=== PATIENT | female | born 1995 | race American Indian/Alaskan Native ===

== ENCOUNTER 2017-10-06 19:09 | Emergency (ER) | payer MEDICAID ==
[2017-10-06 19:29] VITALS: BP 139/73
--- NOTE | 2017-10-06 22:33 | Emergency Department Report ---
- General Chief complaint: Headache Stated complaint: TINGLING,NUMBNESS IN HEAD,CHILLS Time Seen by Provider: 10/06/17 22:26 Source: patient Mode of arrival: Ambulatory Limitations: No Limitations - History of Present Illness Initial comments: 22-year-old -[place] female comes in complaining of intermittent Numbness and itchiness 1 week. Patient reports that his last approximate 5 minutes at a time. Initially happened about 4 times a day. Patient denies any other complaints. Patient does report that she washes her hair every couple days and uses cleaning the nature shampoo with [place]ic oil. Patient admits to having itchy scalp and when she scratches it she makes the numbness worse. Patient does not have a primary care provider. Has no known drug allergies and currently takes no medications on a daily basis. MD complaint: insect bite/sting -: week(s) (1) Severity scale (0 -10): 2 Quality: other (itchiness to scalp) Consistency: intermittent Improves with: none Worsens with: other (Alee) Treatments Prior to Arrival: none - Related Data Previous Rx's Medication Instructions Recorded Last Taken Type Permethrin [Nix Complete] 1 applicatio ONCE #1 combo..pkg 10/06/17 Unknown Rx Allergies Allergy/AdvReac Type Severity Reaction Status Date / Time No Known Allergies Allergy Verified 10/06/17 19:22 Abscess Boil HPI - HPI Chief Complaint: Headache Stated Complaint: TINGLING,NUMBNESS IN HEAD,CHILLS Time Seen by Provider: 10/06/17 22:26 Home Medications: Previous Rx's Medication Instructions Recorded Last Taken Type Permethrin [Nix Complete] 1 applicatio ONCE #1 combo..pkg 10/06/17 Unknown Rx Allergies/Adverse Reactions: Allergies Allergy/AdvReac Type Severity Reaction Status Date / Time No Known Allergies Allergy Verified 10/06/17 19:22 ED Review of Systems ROS: Stated complaint: TINGLING,NUMBNESS IN HEAD,CHILLS Other details as noted in HPI Comment: All other systems reviewed and negative Skin: change in hair/nails ED Past Medical Hx - Past Medical History Previous Medical History?: Yes Hx Arthritis: Yes Additional medical history: Ulcer - Surgical History Past Surgical History?: No - Social History Smoking Status: Current Every Day Smoker Substance Use Type: Alcohol - Medications Home Medications: Home Medications Medication Instructions Recorded Confirmed Last Taken Type Permethrin [Nix Complete] 1 applicatio ONCE #1 combo..pkg 10/06/17 Unknown Rx ED Physical Exam - General Limitations: No Limitations General appearance: alert, in no apparent distress - Head Head exam: Present: atraumatic, normocephalic - Neurological Exam Neurological exam: Present: alert, oriented X3 - Psychiatric Psychiatric exam: Present: normal affect, normal mood - Expanded Skin Exam Expanded Type of lesion: Present: foreign body (lice) Distribution of rash: head ED Course Vital Signs 10/06/17 19:22 Temperature 98.7 F Pulse Rate 57 L Respiratory 16 Rate Blood Pressure 139/73 [Right] O2 Sat by Pulse 100 Oximetry Critical care attestation.: If time is entered above; I have spent that time in minutes in the direct care of this critically ill patient, excluding procedure time. ED Disposition Clinical Impression: Head lice Disposition: DC-01 TO HOME OR SELFCARE Is pt being admited?: No Does the pt Need Aspirin: No Condition: Stable Instructions: Head lice in Children (ED), Permethrin (On the skin) Additional Instructions: Please use medication as prescribed. I highly recommend for you to get the over -the-counter sprain to spray around her room. Wash all clothes and bedding mattress pads in high high heat. If you noticed the white lice in the hair again please repeat using the medication that I have prescribed. Prescriptions: Permethrin [Nix Complete] 1 applicatio ONCE #1 combo..pkg Referrals: PRIMARY CARE, [Primary Care Provider] - 3-5 Days Forms: Work/School Release Form(ED), Accompanied Note
== END 2017-10-06 22:49 | disposition home or self-care (01) ==
LOC: ED 19:09
DX: B85.0 Pediculosis due to Pediculus humanus capitis (principal); M19.90 Unspecified osteoarthritis, unspecified site; F17.200 Nicotine dependence, unspecified, uncomplicated
CPT/HCPCS: 93005; 93010; 99282

== ENCOUNTER 2021-09-21 04:50 | Inpatient (IN) | payer MEDICAID ==
--- NOTE | 2021-09-21 08:05 | XRay Report ---
Portable chest INDICATION: Shortness of breath FINDINGS: Heart size appears normal. No focal consolidation, pleural effusion or pneumothorax. No dis placed rib fracture. IMPRESSION: No acute findings. Abdomen 1 view INDICATION: No bowel movement IMPRESSION: Constipation most significant within the right colon and proximal left colon. No free air is definitely seen. No large calcifications are identified. No acute bone findings. Signer Name: Aubrey Ramires MD Signed: 09/21/2021 8:00 AM Workstation Name: [id number]
[2021-09-21] MEDS ORDERED: ONDANSETRON 4 MG/2 ML INJ IV ONE (08:29)
[2021-09-21] MEDS ORDERED: LIDOCAINE VISCOUS 2% 15 ML ORAL LIQD PO ONE (08:29)
[2021-09-21] MEDS ORDERED: ALUM-MAG HYDROXIDE-SIMETHICONE 200-200-20MG/5ML ORAL LIQD 30 ML PO ONE (08:29)
[2021-09-21] MEDS ORDERED: SODIUM CHLORIDE 0.9% 1000 ML 1,000 ML IV ONE ×2 (08:29→10:23)
--- NOTE | 2021-09-21 08:37 | Emergency Department Report ---
ED General Adult HPI - General Chief complaint: Abdominal Pain Stated complaint: UPPER ABD PAIN Time Seen by Provider: 09/21/21 07:40 Source: patient, EMS Mode of arrival: Ambulatory Limitations: No Limitations - History of Present Illness Initial comments: This is a 26-year-old female with medical history of hyperlipidemia and also vitamin D deficiency; patient also states she has a history of gastritis came in today with concerns of mid epigastric discomfort and also vomiting as well as nausea since midnight. Patient said that she has run out of her Prilosec. Patient denies any other symptoms. Patient current denies any fever chill night sweat dizziness blurred vision lightheadedness headache tinnitus ear pain runny nose sore throat loss of taste loss of smell chest pain palpitation short of breath cough diarrhea constipation dysuria myalgia arthralgia new rash heat or cold intolerance. - Related Data Previous Rx's Medication Instructions Recorded Last Taken Type Permethrin [Nix Complete] 1 applicatio MC ONCE #1 combo..pkg 10/06/17 Unknown Rx Allergies Allergy/AdvReac Type Severity Reaction Status Date / Time No Known Allergies Allergy Verified 10/06/17 19:22 ED Review of Systems ROS: Stated complaint: UPPER ABD PAIN Other details as noted in HPI Comment: All other systems reviewed and negative Constitutional: no symptoms reported Eyes: as per HPI ENT: as per HPI Respiratory: no symptoms reported, see HPI Cardiovascular: as per HPI Endocrine: no symptoms reported Gastrointestinal: abdominal pain Musculoskeletal: as per HPI Skin: as per HPI Neurological: as per HPI Psychiatric: as per HPI Hematological/Lymphatic: as per HPI ED Past Medical Hx - Past Medical History Previous Medical History?: Yes Hx Arthritis: Yes Additional medical history: Ulcer. Gastritis - Surgical History Past Surgical History?: No - Social History Smoking Status: Current Every Day Smoker Substance Use Type: None - Medications Home Medications: Home Medications Medication Instructions Recorded Confirmed Last Taken Type Permethrin [Nix Complete] 1 applicatio MC ONCE #1 combo..pkg 10/06/17 Unknown Rx ED Physical Exam - General Limitations: No Limitations General appearance: alert, in no apparent distress, appears intoxicated - Head Head exam: Present: atraumatic, normocephalic, normal inspection - Eye Eye exam: Present: normal appearance, PERRL, EOMI Pupils: Present: normal accommodation - ENT ENT exam: Present: normal exam, mucous membranes moist - Neck Neck exam: Present: normal inspection, full ROM - Respiratory Respiratory exam: Present: normal lung sounds bilaterally - Cardiovascular Cardiovascular Exam: Present: regular rate - GI/Abdominal GI/Abdominal exam: Present: tenderness, normal bowel sounds. Absent: distended, guarding, rebound, rigid - Extremities Exam Extremities exam: Present: normal inspection, full ROM, normal capillary refill - Back Exam Back exam: Present: normal inspection - Neurological Exam Neurological exam: Present: oriented X3, CN II-XII intact - Psychiatric Psychiatric exam: Present: normal affect, normal mood - Skin Skin exam: Present: warm, normal color ED Course Vital Signs 09/21/21 09/21/21 09/21/21 04:51 09:30 11:01 Temperature 97.9 F Pulse Rate 90 62 Respiratory 18 18 14 Rate Blood Pressure 130/70 142/73 143/69 O2 Sat by Pulse 98 100 100 Oximetry 09/21/21 09/21/21 09/21/21 12:01 12:31 13:01 Temperature Pulse Rate 46 L 52 L 46 L Respiratory 18 15 19 Rate Blood Pressure 127/59 138/66 132/71 O2 Sat by Pulse 100 100 100 Oximetry 09/21/21 15:01 Temperature Pulse Rate 49 L Respiratory 19 Rate Blood Pressure 118/64 O2 Sat by Pulse 100 Oximetry - Reevaluation(s) Reevaluation #1: 09/21/21 15:[address] SCAN RESULT; WILL SIGN OUT PATIENT CARE TO MY COLLEAG[employer] DR. MORE. 09/21/21 15:28 PENDING SURGEON TO CALL BACK 09/21/21 15:[address] MITCHELL AND STANLEY WHO ACCETPED [facility] PATIENT ED Medical Decision Making - Lab Data Result diagrams: 09/21/21 08:58 09/21/21 08:58 Critical care attestation.: If time is entered above; I have spent that time in minutes in the direct care of this critically ill patient, excluding procedure time. ED Disposition Clinical Impression: Acute cholecystitis Disposition: ADMITTED INPATIENT Is pt being admited?: Yes Does the pt Need Aspirin: No Condition: Stable Instructions: Abdominal Pain (ED) Referrals: PRIMARY CARE, [Primary Care Provider] - 3-5 Days Time of Disposition: 15:28
[2021-09-21 09:35] LABS: Hematocrit 41.1 % (30.3-42.9); Hemoglobin 13.6 gm/dl (10.1-14.3); Mean Corpuscular HGB Conc 33 % (30-34); Mean Corpuscular Volume 92 fl (79-97); Platelet Count 364 K/mm3 (140-440); Red Blood Count 4.48 M/mm3 (3.65-5.03); Red Cell Distribution Width 13.3 % (13.2-15.2)
[2021-09-21 09:57] LABS: Alanine Aminotransferase 15 units/L (7-56); Albumin 4.4 g/dL (3.9-5); BUN/Creatinine Ratio 13; Blood Urea Nitrogen 10 mg/dL (7-17); Calcium 9.5 mg/dL (8.4-10.2); Hemolysis Index 6
[2021-09-21] MEDS ORDERED: MORPHINE 4 MG/1 ML INJ IV ONE (11:34)
[2021-09-21 13:15] LABS: Mucus,Urine FEW /HPF
[2021-09-21 14:03] LABS: HCG Qualitative,Urine Negative (Negative)
[2021-09-21 14:04] LABS: RBC,Urine > 182.0 /HPF (0.0-6.0)
[2021-09-21 14:06] LABS: Bilirubin,Urine Negative (Negative); Blood,Urine Small (Negative); Color,Urine Straw (Yellow); Protein,Urine <30 mg dL mg/dL (Negative); Urobilinogen,Urine < 2.0 mg/dL (<2.0)
--- NOTE | 2021-09-21 15:24 | Cat Scan Report ---
CT abdomen pelvis w con INDICATION: EPIGASTRIC PAIN. COMPARISON: None TECHNIQUE: Abdominal and pelvic CT exam performed. All CT scans at this location are performed using CT dose reduction for ALARA by means of automated exposure control. FINDINGS: CT ABDOMEN and PELVIS: Lung Bases: No significant abnormality. Liver: No significant abnormality. Biliary: Gallbladder is dilated. Layering dependently are small foci of high attenuation which is mos t likely related to noncalcified gallstones. There are a few small punctate foci of complications see n as well. The gallbladder wall is thickened and edematous. Common bile duct is normal. Spleen: No significant abnormality. Pancreas: No significant abnormality. Adrenals: No significant abnormality. Kidneys: No significant abnormality. Lymphatics: No lymphadenopathy. Vasculature: No significant abnormality. Bowel: No significant abnormality. Pelvis: No significant abnormality. Osseous Structures: No aggressive osseous lesion. Additional Findings: None IMPRESSION: 1. Findings suggest acute cholecystitis from suspected predominantly noncalcified gallstones. Can obt ain a dedicated ultrasound of the gallbladder to confirm the presence of stones if necessary. Signer Name: Socrates Mojica MD Signed: 09/21/2021 3:20 PM Workstation Name: [employer]
[2021-09-21] MEDS ORDERED: PIPERACILLIN/TAZOBACTAM 3.375 3.375 GM/50 ML BAG IV ONE (15:26)
[2021-09-21] MEDS ORDERED: ONDANSETRON 4 MG/2 ML INJ IV PRN ×2 (16:05→23:04)
[2021-09-21] MEDS ORDERED: MORPHINE 4 MG/1 ML INJ IV PRN (16:05)
[2021-09-21] MEDS ORDERED: MORPHINE 2 MG/1 ML INJ IV PRN (16:05)
--- NOTE | 2021-09-21 16:37 | Consultation ---
History of Present Illness Consult date: 09/21/21 Reason for consult: abdominal pain Chief complaint: abd pain - History of present illness History of present illness: 26-year-old female with no past medical history who presents to the emergency room with 1 day of epigastric abdominal pain. The pain started at midnight last night and became severe. The pain is constant. It is localized to the epigastric area and radiates to the right upper quadrant, back, chest area. He states she felt like she was having heart attack and this prompted her to come to the emergency room. No alleviating or exacerbating factors. She did eat roast beef last night. States she has had similar symptoms but they were much less severe. She admits to nausea and nonbilious/nonbloody emesis. No fevers or chills. No shortness of breath. Past History Past Medical History: No medical history Past Surgical History: Other ([place] teeth extraction) Social history: smoking (1 pack/day), alcohol abuse (1 bottle of wine a day) Family history: no significant family history Medications and Allergies Allergies Allergy/AdvReac Type Severity Reaction Status Date / Time No Known Allergies Allergy Verified 09/21/21 16:30 Home Medications Medication Instructions Recorded Confirmed Last Taken Type Permethrin [Nix Complete] 1 applicatio MC ONCE #1 combo..pkg 10/06/17 Unknown Rx Active Meds: Active Medications Piperacillin Sod/Tazobactam Sod (Zosyn/Ns 4.5gm/100ml) 4.5 gm in 100 mls @ 200 mls/hr IV Q8H JUAN F; Protocol Morphine Sulfate (Morphine 2 Mg/1 Ml Inj) 2 mg IV Q3H PRN PRN Reason: Pain, Moderate (4-6) Morphine Sulfate (Morphine 4 Mg/1 Ml Inj) 4 mg IV Q3H PRN PRN Reason: Pain , Severe (7-10) Last Admin: 09/21/21 16:31 Dose: 4 mg Ondansetron HCl (Ondansetron 4 Mg/2 Ml Inj) 4 mg IV Q6H PRN PRN Reason: Nausea Review of Systems All systems: negative (10 point ROS performed and negative except for that listed in HPI) Exam Vital Signs Temp Pulse Resp BP Pulse Ox 97.9 F 90 18 130/70 98 09/21/21 04:51 09/21/21 04:51 09/21/21 04:51 09/21/21 04:51 09/21/21 04:51 Narrative exam: Gen.: Awake, alert, oriented x3. Mild distress due to pain ENT: Trachea midline. No lymphadenopathy. No scleral icterus or conjunctival pallor CV: S1, S2 present Respiratory: No audible wheezes Abdomen: Soft, nondistended, right upper quadrant tenderness to palpation. There is voluntary guarding. No rebound, rigidity Extremities: No clubbing, cyanosis, edema Results - Labs 09/21/21 08:58 09/21/21 08:58 Abnormal lab results 09/21/21 09/21/21 09/21/21 Range/Units 08:58 08:58 08:58 WBC 15.6 H (4.5-11.0) K/mm3 Glucose 137 H (65-100) mg/dL Lactic Acid 3.20 H* (0.7-2.0) mmol/L Urine Blood (Negative) Urine WBC (Auto) (0.0-6.0) /HPF 09/21/21 Range/Units 11:01 WBC (4.5-11.0) K/mm3 Glucose (65-100) mg/dL Lactic Acid (0.7-2.0) mmol/L Urine Blood Small A (Negative) Urine WBC (Auto) 63.0 H (0.0-6.0) /HPF Diabetes panel 09/21/21 Range/Units 08:58 Sodium 142 (137-145) mmol/L Potassium 4.2 (3.6-5.0) mmol/L Chloride 104.8 (98-107) mmol/L Carbon Dioxide 23 (22-30) mmol/L BUN 10 (7-17) mg/dL Creatinine 0.8 (0.6-1.2) mg/dL Glucose 137 H (65-100) mg/dL Calcium 9.5 (8.4-10.2) mg/dL AST 16 (5-40) units/L ALT 15 (7-56) units/L Alkaline Phosphatase 92 (35-129) units/L Total Protein 7.2 (6.3-8.2) g/dL Albumin 4.4 (3.9-5) g/dL Calcium panel 09/21/21 Range/Units 08:58 Calcium 9.5 (8.4-10.2) mg/dL Albumin 4.4 (3.9-5) g/dL Pituitary panel 09/21/21 Range/Units 08:58 Sodium 142 (137-145) mmol/L Potassium 4.2 (3.6-5.0) mmol/L Chloride 104.8 (98-107) mmol/L Carbon Dioxide 23 (22-30) mmol/L BUN 10 (7-17) mg/dL Creatinine 0.8 (0.6-1.2) mg/dL Glucose 137 H (65-100) mg/dL Calcium 9.5 (8.4-10.2) mg/dL Adrenal panel 09/21/21 Range/Units 08:58 Sodium 142 (137-145) mmol/L Potassium 4.2 (3.6-5.0) mmol/L Chloride 104.8 (98-107) mmol/L Carbon Dioxide 23 (22-30) mmol/L BUN 10 (7-17) mg/dL Creatinine 0.8 (0.6-1.2) mg/dL Glucose 137 H (65-100) mg/dL Calcium 9.5 (8.4-10.2) mg/dL Total Bilirubin 0.30 (0.1-1.2) mg/dL AST 16 (5-40) units/L ALT 15 (7-56) units/L Alkaline Phosphatase 92 (35-129) units/L Total Protein 7.2 (6.3-8.2) g/dL Albumin 4.4 (3.9-5) g/dL - Imaging CT scan - abdomen: report reviewed, image reviewed CT scan - pelvis: report reviewed, image reviewed Assessment and Plan 26-year-old female with right upper quadrant pain, CT scan findings of acute cholecystitis Plan: 1. CLD, NPO p MN 2. Obtain RUQ u/s 3. IVF 4. prn pain and nausea control 5. DVT ppx 6. IV abx - zosyn 7. Discussed cholecystectomy with the patient. I explained all risks, benefits, alternatives to surgery. All questions were answered. Patient agreeable to proceed with cholecystectomy. Consent obtained. Patient added to the OR schedule for tomorrow. Thank you for this consultation. Please call with any questions or concerns. Evaluation and treatment of this patient was during the time of the national and state emergency arising from COVID19 coronavirus pandemic. Treatment and procedures performed meet the current and available best practice and guidelines for patient during the COVID pandemic.
[2021-09-21] MEDS ORDERED: D5W/0.45% NACL 1,000 ML IV SCH (17:00)
--- NOTE | 2021-09-21 17:17 | Ultrasound Report ---
LIMITED RUQ ABDOMINAL ULTRASOUND INDICATION: ruq pain, gallstones. COMPARISON: CT on 09/21/2021. FINDINGS: Pancreas: Visualized portions show no significant abnormality. Abdominal Aorta: No significant abnormality. IVC: No significant abnormality. Liver: The liver measures 15.4 cm in length. No significant abnormality. Normal hepatopedal blood piero w in the main portal vein. Gallbladder: Gallstones in the gallbladder with mild wall thickening. Positive Rees's sign.. Bile ducts: No significant abnormality. Common bile duct measures 7 mm. Right kidney: No significant abnormality visualized.. Free fluid: None. Additional Findings: None. IMPRESSION: 1. Cholelithiasis with positive Rees's sign; correlation for acute cholecystitis recommended.. Signer Name: Jaspreet Kan MD Signed: 09/21/2021 5:12 PM Workstation Name: [id number]
[2021-09-21] MEDS ORDERED: ACETAMINOPHEN 325 MG TAB PO PRN (23:04)
[2021-09-21] MEDS ORDERED: METOCLOPRAMIDE 10 MG/2 ML INJ IV PRN (23:04)
[2021-09-21] MEDS ORDERED: D5W/0.9% NACL 1,000 ML IV SCH (23:45)
[2021-09-21] MEDS ORDERED: PIPERACIL/TAZOBACTA 4.5/NS 100 4.5 GM/100 ML VIAL IV SCH (23:45)
[2021-09-22] MEDS: HYDROmorphone 0.5 MG/0.5 ML INJ IV PRN ×3 (00:01→07:58)
[2021-09-22] MEDS: HEPARIN 5,000 UNIT/1 ML VIAL SUB-Q SCH ×3 (03:34→23:54)
[2021-09-22] MEDS: FAMOTIDINE 20 MG/2 ML INJ IV SCH ×3 (03:34→23:50)
[2021-09-22] MEDS: PIPERACIL/TAZOBACTA 4.5/NS 100 4.5 GM/100 ML VIAL IV SCH ×3 (03:39→17:41)
[2021-09-22 05:38] LABS: Basophils % (Auto) 0.2 % (0.0-1.8); Eosinophils % (Auto) 0.2 % (0.0-4.3); Hemoglobin 12.7 gm/dl (10.1-14.3); Lymphocytes # (Auto) 2.2 K/mm3 (1.2-5.4); Mean Corpuscular HGB Conc 33 % (30-34); Mean Corpuscular Volume 92 fl (79-97); Monocytes # (Auto) 1.3 K/mm3 (0.0-0.8); Monocytes % (Auto) 8.9 % (0.0-7.3); Platelet Count 312 K/mm3 (140-440); Red Blood Count 4.26 M/mm3 (3.65-5.03); Red Cell Distribution Width 13.4 % (13.2-15.2)
[2021-09-22 05:59] LABS: Alanine Aminotransferase 13 units/L (7-56); Albumin 3.5 g/dL (3.9-5); Blood Urea Nitrogen 8 mg/dL (7-17); Calcium 8.5 mg/dL (8.4-10.2); Hemolysis Index 4
[2021-09-22 06:04] LABS: BUN/Creatinine Ratio 11
--- NOTE | 2021-09-22 08:10 | History and Physical Report ---
History of Present Illness Date of examination: 09/21/21 Date of admission: 09/21/21 23:04 Chief complaint: Right upper quadrant pain since last night History of present illness: 26-year-old female with past medical history of hyperlipidemia and vitamin D deficiency comes in for right upper quadrant and epigastric pain since last night. Also associated with the nausea and vomiting. Vomited about 2-3 times. Eating exacerbates vomiting. And nausea. Relieving factor is nothing by mouth. - Past Medical History --Previous Medical History?: Yes --Arthritis: Yes --Additional medical history: Ulcer. Gastritis - Surgical History --Past Surgical History?: No - Social History --Smoking Status: Current Every Day Smoker --Substance Use Type: None - Medications Home Medications: Home Medications Medication Instructions Recorded Confirmed Last Taken Type Permethrin [Nix Complete] 1 applicatio ONCE #1 combo..pkg 10/06/17 Unknown Rx Review of Systems ROS: Stated complaint: UPPER ABD PAIN Other details as noted in HPI Comment: All other systems reviewed and negative Constitutional: no symptoms reported Eyes: as per HPI ENT: as per HPI Respiratory: no symptoms reported, see HPI Cardiovascular: as per HPI Endocrine: no symptoms reported Gastrointestinal: abdominal pain Musculoskeletal: as per HPI Skin: as per HPI Neurological: as per HPI Psychiatric: as per HPI Hematological/Lymphatic: as per HPI Past History Past Medical History: No medical history Past Surgical History: Other ([place] teeth extraction) Social history: smoking (1 pack/day), alcohol abuse (1 bottle of wine a day) Family history: no significant family history Medications and Allergies Allergies Allergy/AdvReac Type Severity Reaction Status Date / Time No Known Allergies Allergy Verified 09/21/21 16:30 Home Medications Medication Instructions Recorded Confirmed Last Taken Type Permethrin [Nix Complete] 1 applicatio ONCE #1 combo..pkg 10/06/17 Unknown Rx Active Meds: Active Medications Acetaminophen (Acetaminophen 325 Mg Tab) 650 mg PO Q4H PRN PRN Reason: Pain MILD(1-3)/Fever >100.5/BROOKS Famotidine (Famotidine 20 Mg/2 Ml Inj) 20 mg IV BID [facility] Last Admin: 09/22/21 03:34 Dose: Not Given Heparin Sodium (Porcine) (Heparin 5,000 Unit/1 Ml Vial) 5,000 unit SUB-Q Q12HR [facility] Last Admin: 09/22/21 03:34 Dose: Not Given Hydromorphone HCl (Hydromorphone 0.5 Mg/0.5 Ml Inj) 1 mg IV Q3H PRN PRN Reason: Pain , Severe (7-10) Last Admin: 09/22/21 07:58 Dose: 1 mg Piperacillin Sod/Tazobactam Sod (Zosyn/Ns 4.5gm/100ml) 4.5 gm in 100 mls @ 200 mls/hr IV Q8H [facility]; Protocol Last Admin: 09/22/21 03:39 Dose: 200 mls/hr Dextrose/Sodium Chloride (D5ns) 1,000 mls @ 75 mls/hr IV DIRECT JUAN F Last Admin: 09/22/21 03:38 Dose: 75 mls/hr Metoclopramide HCl (Metoclopramide 10 Mg/2 Ml Inj) 10 mg IV Q6H PRN PRN Reason: Nausea And Vomiting Morphine Sulfate (Morphine 2 Mg/1 Ml Inj) 2 mg IV Q4H PRN PRN Reason: Pain, Moderate (4-6) Ondansetron HCl (Ondansetron 4 Mg/2 Ml Inj) 4 mg IV Q3H PRN PRN Reason: Nausea And Vomiting Sodium Chloride (Sodium Chloride 0.9% 10 Ml Flush Syringe) 10 ml IV BID [facility] Last Admin: 09/22/21 03:35 Dose: Not Given Sodium Chloride (Sodium Chloride 0.9% 10 Ml Flush Syringe) 10 ml IV PRN PRN PRN Reason: LINE FLUSH Exam - Constitutional Vitals: Temp Pulse Resp BP Pulse Ox 99 F 91 H 16 112/54 99 09/22/21 03:49 09/22/21 03:49 09/22/21 04:10 09/22/21 03:49 09/22/21 04:10 General appearance: Present: no acute distress, well-nourished - EENT Eyes: Present: PERRL ENT: hearing intact, clear oral mucosa - Neck Neck: Present: supple, normal ROM - Respiratory Respiratory effort: normal Respiratory: bilateral: CTA - Cardiovascular Heart rate: 78 Rhythm: regular Heart Sounds: Present: S1 & S2. Absent: rub, click - Extremities Extremities: pulses symmetrical, No edema Peripheral Pulses: within normal limits - Abdominal General gastrointestinal: Present: soft, tender, non-distended, normal bowel sounds Localized gastrointestinal: tender: RUQ, guarding: RUQ, rebound: RUQ Female genitourinary: Present: normal - Integumentary Integumentary: Present: clear, warm, dry - Musculoskeletal Musculoskeletal: gait normal, strength equal bilaterally - Psychiatric Psychiatric: appropriate mood/affect, intact judgment & insight - Neurologic Neurologic: CNII-XII intact, moves all extremities Results - Labs CBC & Chem 7: 09/22/21 04:29 09/22/21 04:29 Labs: Laboratory Last Values WBC 14.7 K/mm3 (4.5-11.0) H 09/22/21 04:29 RBC 4.26 M/mm3 (3.65-5.03) 09/22/21 04:29 Hgb 12.7 gm/dl (10.1-14.3) 09/22/21 04:29 Hct 39.0 % (30.3-42.9) 09/22/21 04:29 MCV 92 fl (79-97) 09/22/21 04:29 MCH 30 pg (28-32) 09/22/21 04:29 MCHC 33 % (30-34) 09/22/21 04:29 RDW 13.4 % (13.2-15.2) 09/22/21 04:29 Plt Count 312 K/mm3 (140-440) 09/22/21 04:29 Lymph % (Auto) 15.0 % (13.4-35.0) 09/22/21 04:29 [place] % (Auto) 8.9 % (0.0-7.3) H 09/22/21 04:29 Eos % (Auto) 0.2 % (0.0-4.3) 09/22/21 04:29 Baso % (Auto) 0.2 % (0.0-1.8) 09/22/21 04:29 Lymph # (Auto) 2.2 K/mm3 (1.2-5.4) 09/22/21 04:29 Child[place] # (Auto) 1.3 K/mm3 (0.0-0.8) H 09/22/21 04:29 Eos # (Auto) 0.0 K/mm3 (0.0-0.4) 09/22/21 04:29 Baso # (Auto) 0.0 K/mm3 (0.0-0.1) 09/22/21 04:29 Seg Neutrophils % 75.7 % (40.0-70.0) H 09/22/21 04:29 Seg Neutrophils # 11.1 K/mm3 (1.8-7.7) H 09/22/21 04:29 Sodium 138 mmol/L (137-145) 09/22/21 04:29 Potassium 3.5 mmol/L (3.6-5.0) L 09/22/21 04:29 Chloride 102.1 mmol/L (98-107) 09/22/21 04:29 Carbon Dioxide 26 mmol/L (22-30) 09/22/21 04:29 Anion Gap 13 mmol/L 09/22/21 04:29 BUN 8 mg/dL (7-17) 09/22/21 04:29 Creatinine 0.7 mg/dL (0.6-1.2) 09/22/21 04:29 Estimated GFR > 60 ml/min 09/22/21 04:29 BUN/Creatinine Ratio 11 % 09/22/21 04:29 Glucose 111 mg/dL (65-100) H 09/22/21 04:29 Lactic Acid 1.50 mmol/L (0.7-2.0) 09/21/21 10:03 Calcium 8.5 mg/dL (8.4-10.2) 09/22/21 04:29 Magnesium 1.70 mg/dL (1.7-2.3) 09/21/21 08:58 Total Bilirubin 0.80 mg/dL (0.1-1.2) 09/22/21 04:29 AST 15 units/L (5-40) 09/22/21 04:29 ALT 13 units/L (7-56) 09/22/21 04:29 Alkaline Phosphatase 74 units/L (35-129) 09/22/21 04:29 Total Protein 6.1 g/dL (6.3-8.2) L 09/22/21 04:29 Albumin 3.5 g/dL (3.9-5) L 09/22/21 04:29 Albumin/Globulin Ratio 1.3 % 09/22/21 04:29 Amylase 77 units/L (27-131) 09/21/21 08:58 Lipase 35 units/L (13-60) 09/21/21 08:58 Urine Color Straw (Yellow) 09/21/21 11:01 Urine Turbidity Cloudy (Clear) 09/21/21 11:01 Urine pH 7.0 (5.0-7.0) 09/21/21 11:01 Ur Specific [place] 1.015 (1.003-1.030) 09/21/21 11:01 Urine Protein <30 mg dl mg/dL (Negative) 09/21/21 11:01 Urine Glucose (UA) Negative mg/dL (Negative) 09/21/21 11:01 Urine Ketones Negative mg/dL (Negative) 09/21/21 11:01 Urine Blood Small (Negative) A 09/21/21 11:01 Urine Nitrite Negative (Negative) 09/21/21 11:01 Ur Reducing Substances Not Reportable 09/21/21 11:01 Urine Bilirubin Negative (Negative) 09/21/21 11:01 Urine Ictotest Not Reportable 09/21/21 11:01 Urine Urobilinogen < 2.0 mg/dL (<2.0) 09/21/21 11:01 Ur Leukocyte Esterase Trace (Negative) 09/21/21 11:01 Urine WBC (Auto) 63.0 /HPF (0.0-6.0) H 09/21/21 11:01 Urine RBC (Auto) > 182.0 /HPF (0.0-6.0) 09/21/21 11:01 U Epithel Cells (Auto) 7.0 /HPF (0-13.0) 09/21/21 11:01 Urine WBC Clumps 3+ /HPF 09/21/21 11:01 Urine Mucus Few /HPF 09/21/21 11:01 Urine HCG, Qual Negative (Negative) 09/21/21 Unknown Short CBC 09/21/21 09/22/21 Range/Units 08:58 04:29 WBC 15.6 H 14.7 H (4.5-11.0) K/mm3 Hgb 13.6 12.7 (10.1-14.3) gm/dl Hct 41.1 39.0 (30.3-42.9) % Plt Count 364 312 (140-440) K/mm3 BMP 09/21/21 09/22/21 08:58 04:29 Sodium 142 138 Potassium 4.2 3.5 L Chloride 104.8 102.1 Carbon Dioxide 23 26 BUN 10 8 Creatinine 0.8 0.7 Glucose 137 H 111 H Calcium 9.5 8.5 Liver Function 09/21/21 09/22/21 Range/Units 08:58 04:29 Total Bilirubin 0.30 0.80 (0.1-1.2) mg/dL AST 16 15 (5-40) units/L ALT 15 13 (7-56) units/L Alkaline Phosphatase 92 74 (35-129) units/L Albumin 4.4 3.5 L (3.9-5) g/dL Urine 09/21/21 Range/Units 11:01 Urine Color Straw (Yellow) Urine pH 7.0 (5.0-7.0) Ur Specific [place] 1.015 (1.003-1.030) Urine Protein <30 mg dl (Negative) mg/dL Urine Glucose (UA) Negative (Negative) mg/dL - Imaging and Cardiology Imaging and Cardiology: CT of the abdomen Findings suggest acute cholecystitis, suspected predominantly noncalcified gallstones obtain Abdomen ultrasound a dedicated ultrasound of the gallbladder to cnfirm the presence or stones if necessary Abdomen x-ray Constipation most significant to the right colon and proximal left colon No free air is definitely seen No large calcifications are identified Chest x-ray Constipation within the right colon and proximal left colon Marquez/IV: Voiding Method Toilet Assessment and Plan Assessment and plan: Full code Advance Directives: Yes (Full code) VTE prophylaxis?: Chemical Plan of care discussed with patient/family: Yes - Patient Problems (1) Acute cholecystitis Current Visit: Yes Status: Acute Plan to address problem: IV fluids Pain control Surgery consult appreciated (2) UTI (urinary tract infection) Current Visit: Yes Status: Acute Qualifiers: Urinary tract infection type: acute cystitis Plan to address problem: On antibiotics for acute cholecystitis Urine cultures pending (3) DVT prophylaxis Current Visit: Yes Status: Acute Plan to address problem: On heparin and GI prophylaxis (4) Advance care planning Current Visit: Yes Status: Acute Plan to address problem: Disease education conducted, care plan discussed, diagnosis discussed, prognosis discussed and patient acknowledged understanding. Care plan +30 minutes.
--- NOTE | 2021-09-22 08:10 | Anesthesia Day of Surgery ---
Anesthesia Day of Surgery - Day of Surgery Patient Examined: Yes Patient H&P Reviewed: Yes Patient is NPO: Yes
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
[2021-09-22] MEDS ORDERED: BUPIVACAINE/PF (0.5%) 5 MG/1 ML 30 ML VIAL INFILTRATI ONE ×2 (09:46→11:06)
[2021-09-22] MEDS ORDERED: SODIUM CHLORIDE 0.9% 100 ML ONE (09:46)
[2021-09-22] MEDS ORDERED: LIDOCAINE (1%) 10 MG/1 ML VIAL 20 ML MDV ONE (09:46)
[2021-09-22] MEDS ORDERED: LIDOCAINE MPF (2%) 20 MG/1 ML VIAL 5 ML ONE (09:54)
[2021-09-22] MEDS ORDERED: propofoL 200 MG/20 ML VIAL IV ONE (09:54)
[2021-09-22] MEDS ORDERED: ONDANSETRON 4 MG/2 ML INJ ONE (09:54)
[2021-09-22] MEDS ORDERED: HYDROmorphone 1 MG/1 ML INJ ONE (09:54)
[2021-09-22] MEDS ORDERED: ROCURONIUM 50 MG/5 ML INJ IV ONE (09:54)
[2021-09-22] MEDS ORDERED: LACTATED RINGERS 1,000 ML ONE ×2 (10:04→11:33)
[2021-09-22] MEDS: LACTATED RINGERS 1,000 ML IV SCH (10:15)
[2021-09-22] MEDS ORDERED: ONDANSETRON 4 MG/2 ML INJ IV PRN (10:17)
[2021-09-22] MEDS ORDERED: HYDROmorphone 0.5 MG/0.5 ML INJ IV PRN ×2 (10:17)
[2021-09-22] MEDS ORDERED: dexAMETHasone 20 MG/5 ML VIAL ONE (10:50)
[2021-09-22] MEDS ORDERED: LIDOCAINE (1%) 10 MG/1 ML VIAL 20 ML MDV INFILTRATI ONE (11:06)
[2021-09-22] MEDS ORDERED: SODIUM CHLORIDE 0.9% 100 ML IVPB IV ONE (11:07)
[2021-09-22] MEDS ORDERED: SODIUM CHLORIDE 0.9% IRR 1,500 ML BOTTLE IR ONE (11:07)
[2021-09-22] MEDS ORDERED: IOHEXOL 300 MG/ML 50ML IV ONE (11:08)
[2021-09-22] MEDS ORDERED: KETOROLAC 30 MG/1 ML INJ ONE (11:37)
[2021-09-22] MEDS ORDERED: GLYCOPYRROLATE 0.4 MG/2 ML INJ ONE (11:40)
[2021-09-22] MEDS ORDERED: NEOSTIGMINE 10MG/10 ML INJ MDV ONE (11:40)
--- NOTE | 2021-09-22 12:02 | Operative Report ---
Operative Report Operative Report: Date of operation: 09/22/2021 Preoperative diagnosis: Acute calculus cholecystitis, dilated common bile duct postOperative diagnoses: Acute calculus cholecystitis, dilated common bile duct Procedure performed: Laparoscopic cholecystectomy, intraoperative cholangiogram Surgeon: Mona Ag DO Electroplating Laborer surgeon: MD Lona Anesthesia: Gen. endotracheal anesthesia, local Findings: Distended gallbladder with hydrops. Thickened gallbladder wall with pericholecystic fluid. Numerous stones in the gallbladder. Negative cholangiogram Specimen: Gallbladder Estimated blood loss: 15cc Complications: None Disposition: Stable to PACU HPI an indication: 26-year-old female who presented to the emergency room with complaints of severe right upper quadrant abdominal pain radiating to the back and chest. Work-up included labs which showed a leukocytosis. Ultrasound and CT scan of the abdomen revealed acute cholecystitis with dilation of the common bile duct 7mm. LFTs were within normal limits. It was recommended the patient be admitted to the hospital for IV fluids, bowel rest and cholecystectomy. All risk, benefits, alternatives to surgery were discussed with the patient and questions answered. Consent was obtained for laparoscopic, possible open cholecystectomy, possible cholangiogram. Procedure in detail: The patient was identified in the preoperative area and taken back to the operating room, placed on the operating room table in supine position. After anesthesia was induced, the abdomen was prepped and draped in usual sterile fashion and timeout was performed. Local anesthetic was infiltrated into all of the skin incision sites. A supraumbilical incision was made through which a Veress needle was inserted. The Veress needle was inserted 2 times but the insufflation pressures were high and therefore it was withdrawn. A denis incision was made in the left upper quadrant at Johnson's point through which a Veress needle was inserted. The Veress needle positioning was confirmed using saline drop test and the abdomen insufflated to 15 mmHg without incident. A 5 mm Optiview trocar was placed through the supraumbilical incision. The abdomen was inspected and there was no underlying injury to the abdominal structures. The Veress needle was identified and removed. An additional 12 mm subxyphoid port, 5 mm right upper quadrant (airseal port), and 5 mm right lateral abdominal ports were placed under direct visualization. The patient was then placed into reverse Trendelberg and tilted to the left. The gallbladder was severely distended and inflamed. The gallbladder was decompressed using a 30 cc syringe and laparoscopic needle. 60 cc of light bilious fluid was aspirated. The gallbladder fundus was retracted cephalad and above the liver. The cystic duct and artery were carefully skeletonized. The medial and lateral peritoneal attachments to the gallbladder were dissected using a combination of blunt dissection with the [place] and hook electrocautery. The cystic duct and artery were the only 2 structures seen entering the gallbladder and the critical view was successfully obtained. 2 clips were placed on the proximal aspect of the cystic artery and 1 distally. This was transected in between the clips using EndoShears. 1 clip was placed on the distal aspect of the cystic duct and a ductotomy created with EndoShears just proximal to this. Cholangiogram catheter was inserted and secured with an [place] clamp. This was tested with injectable saline which was injected without resistance and leakage. A cholangiogram was then performed with 50-50 Omnipaque and injectable saline. There was immediate opacification of the common bile duct, common hepatic duct, intrahepatic bile duct, duodenum. There is no evidence of choledocholithiasis. The cholangiogram catheter was then removed. 3 clips were placed on the proximal aspect of the cystic duct and the duct transected using EndoShears. The gallbladder was dissected from the liver bed using electrocautery. The gallbladder was placed into a Endo Catch bag and removed from the abdomen via the 12mm port. The gallbladder fossa was then inspected and there was no identifiable bleeding or bile leakage. Hemostasis was ensured. The clips on the cystic duct and artery were visualized and intact. The patient was then placed into neutral position. Inflammatory fluid was evacuated from the abdomen using a suction human resources support specialist. The 12 mm port fascia was closed with interrupted 0 Vicryl suture using the Buck Foreman device. The remaining ports were removed under direct visualization. Skin incisions were closed with 4-0 Monocryl subcuticular stitches and skin glue. All skin incisions were once again infiltrated with local anesthetic. The gallbladder was examined on the back table and opened. There were multiple stones and bile in the gallbladder. At the end case all sponge, instrument, sharp counts were correct 2. The patient was awoken from anesthesia, extubated, and taken to PACU in stable condition.
--- NOTE | 2021-09-22 14:31 | Fluoroscopy Report ---
INTRAOPERATIVE FLUOROSCOPY: CHOLANGIOGRAM INDICATION / CLINICAL INFORMATION: GALLSTONES. TECHNIQUE: Intraoperative spot images were obtained during the procedure. FINDINGS: Images show intraoperative cholangiogram See operative/procedure note by performing physician for full details. Fluoroscopy Time: 0.1 minutes. Fluoroscopy Images: 1. Signer Name: Jaspreet Kan MD Signed: 09/22/2021 2:27 PM Workstation Name: [id number]
[2021-09-22] MEDS: HYDROcodone/ACETAMINOPHEN 5-325 MG TAB PO PRN ×2 (16:01→23:59)
--- NOTE | 2021-09-22 16:08 | Discharge Summary ---
Providers - Providers Date of Admission: 09/21/21 23:04 Date of discharge: 09/23/21 Attending physician: JOSEFINA YAÑEZ 09/21/21 23:04 Consult to Physician [CONS] Routine Comment: Consulting Provider: SUZIE MITCHELL Physician Instructions: Reason For Exam: Acute cholecystitis Primary care physician: AIRCRAFT BODY REPAIRER Hospitalization Condition: Stable Procedures: Laparoscopic cholecystectomy, intraoperative cholangiogram Hospital course: Subjective Date of service: 09/22/21 Principal diagnosis: Acute cholecystitis Interval history: Status postcholecystectomy today Postop patient doing well Assessment and Plan - Patient Problems (1) Acute cholecystitis Current Visit: Yes Status: Acute Plan to address problem: S/p cholecystectomy Postop patient doing well Patient has some pain and wants to go home tomorrow morning On clear liquids (2) UTI (urinary tract infection) Current Visit: Yes Status: Acute Qualifiers: Urinary tract infection type: acute cystitis Plan to address problem: On antibiotics for acute cholecystitis Urine cultures pending (3) DVT prophylaxis Current Visit: Yes Status: Acute Plan to address problem: On heparin and GI prophylaxis (4) Advance care planning Current Visit: Yes Status: Acute Plan to address problem: Disease education conducted, care plan discussed, diagnosis discussed, prognosis discussed and patient acknowledged understanding. Care plan +30 minutes. Disposition: 01 HOME / SELF CARE / HOMELESS Final Discharge Diagnosis (Prints w/discharge instructions): Acute cholecystitis. UTI Time spent for discharge: 30 minutes - Discharge Diagnoses (1) Acute cholecystitis Status: Acute (2) UTI (urinary tract infection) Status: Acute Qualifiers: Urinary tract infection type: acute cystitis (3) DVT prophylaxis Status: Acute (4) Advance care planning Status: Acute Core Measure Documentation - Palliative Care Palliative Care/ Comfort Measures: Not Applicable - Core Measures Any of the following diagnoses?: none Exam - Constitutional Vitals: Temp Pulse Resp BP Pulse Ox 98.6 F 63 16 117/67 98 09/22/21 12:57 09/22/21 12:57 09/22/21 12:57 09/22/21 12:57 09/22/21 12:57 General appearance: Present: no acute distress, well-nourished - EENT Eyes: Present: PERRL ENT: hearing intact, clear oral mucosa - Neck Neck: Present: supple, normal ROM - Respiratory Respiratory effort: normal Respiratory: bilateral: CTA - Cardiovascular Heart rate: 78 Rhythm: regular Heart Sounds: Present: S1 & S2. Absent: rub, click - Extremities Extremities: no ischemia, pulses intact, pulses symmetrical, No edema Peripheral Pulses: within normal limits - Abdominal General gastrointestinal: Present: soft, non-tender, non-distended, normal bowel sounds Female genitourinary: Present: normal - Integumentary Integumentary: Present: clear, warm, dry - Musculoskeletal Musculoskeletal: gait normal, strength equal bilaterally - Psychiatric Psychiatric: appropriate mood/affect, intact judgment & insight - Neurologic Neurologic: CNII-XII intact, moves all extremities - Allied Health Allied health notes reviewed: nursing, case management Plan Activity: no restrictions Diet: regular, advance as tolerated Follow up with: SUZIE MITCHELL DO [Staff Physician] - 7 Days PRIMARY CARE, [Primary Care Provider] - 3-5 Days
--- NOTE | 2021-09-22 17:05 | Post Anesthesia Evaluation ---
- Post Anesthesia Evaluation Patient Participated: Yes Airway Patent: Yes Stable Respiratory Function: Yes Nausea/Vomiting: No Temp > 96.8F: Yes Pain Manageable: Yes Adequeate Hydration: Yes Anesthesia Complications: No Block Receding Appropriately: Not Applicable Patient on Ventilator: No
[2021-09-22] MEDS: MORPHINE 2 MG/1 ML INJ IV PRN ×2 (17:41→20:55)
[2021-09-22 22:28] VITALS: BP 106/77
[2021-09-23] MEDS: PIPERACIL/TAZOBACTA 4.5/NS 100 4.5 GM/100 ML VIAL IV SCH ×2 (00:02→10:15)
[2021-09-23] MEDS: LACTATED RINGERS 1,000 ML IV SCH (00:08)
--- NOTE | 2021-09-23 07:38 | Progress Note ---
Assessment and Plan Full code - Patient Problems (1) Acute cholecystitis Current Visit: Yes Status: Acute Plan to address problem: S/p cholecystectomy Postop patient doing well Patient has some pain and wants to go home tomorrow morning On clear liquids (2) UTI (urinary tract infection) Current Visit: Yes Status: Acute Qualifiers: Urinary tract infection type: acute cystitis Plan to address problem: On antibiotics for acute cholecystitis Urine cultures pending (3) DVT prophylaxis Current Visit: Yes Status: Acute Plan to address problem: On heparin and GI prophylaxis (4) Advance care planning Current Visit: Yes Status: Acute Plan to address problem: Disease education conducted, care plan discussed, diagnosis discussed, prognosis discussed and patient acknowledged understanding. Care plan +30 minutes. Subjective Date of service: 09/22/21 Principal diagnosis: Acute cholecystitis Interval history: Status postcholecystectomy today Postop patient doing well Objective - Constitutional Vitals: Vital Signs - 12hr 09/22/21 09/22/21 09/22/21 19:40 19:50 20:00 Pulse Rate 124 H 128 H 123 H Respiratory 24 26 H 24 Rate O2 Sat by Pulse 97 97 97 Oximetry 09/22/21 09/22/21 09/22/21 20:10 20:20 20:30 Pulse Rate 126 H 126 H 126 H Respiratory 27 H 21 28 H Rate O2 Sat by Pulse 97 96 96 Oximetry 09/22/21 09/22/21 09/22/21 20:40 20:50 21:00 Pulse Rate 124 H 125 H 124 H Respiratory 23 20 21 Rate O2 Sat by Pulse 98 98 97 Oximetry 09/22/21 09/22/21 09/22/21 21:10 21:20 21:30 Pulse Rate 124 H 124 H 123 H Respiratory 23 27 H 23 Rate O2 Sat by Pulse 97 95 98 Oximetry 09/22/21 09/22/21 09/22/21 21:40 21:50 22:00 Pulse Rate 124 H 122 H 124 H Respiratory 22 23 24 Rate O2 Sat by Pulse 98 98 98 Oximetry 09/22/21 09/22/21 09/23/21 22:10 22:20 04:00 Pulse Rate 122 H 122 H Respiratory 21 23 18 Rate O2 Sat by Pulse 97 99 100 Oximetry General appearance: Present: no acute distress, well-nourished - EENT Eyes: PERRL, EOM intact ENT: hearing intact, clear oral mucosa Ears: bilateral: normal - Neck Neck: supple, normal ROM - Respiratory Respiratory effort: normal Respiratory: bilateral: CTA - Breasts Breasts: normal - Cardiovascular Heart rate: 78 Rhythm: regular Heart Sounds: Present: S1 & S2. Absent: gallop, rub Extremities: no ischemia, pulses intact, No edema, normal color, Full ROM - Gastrointestinal General gastrointestinal: Present: soft, non-tender, non-distended, normal bowel sounds - Genitourinary Female genitourinary: normal - Integumentary Integumentary: clear, warm, dry - Musculoskeletal Musculoskeletal: 1, strength equal bilaterally - Neurologic Neurologic: moves all extremities - Psychiatric Psychiatric: memory intact, appropriate mood/affect, intact judgment & insight - Labs CBC & Chem 7: 09/22/21 04:29 09/22/21 04:29
[2021-09-23] MEDS: MORPHINE 2 MG/1 ML INJ IV PRN (08:29)
[2021-09-23] MEDS ORDERED: FAMOTIDINE 20 MG TAB PO SCH (10:00)
[2021-09-23] MEDS: HEPARIN 5,000 UNIT/1 ML VIAL SUB-Q SCH (10:16)
== END 2021-09-23 12:46 | disposition home or self-care (01) | DRG 418 ==
LOC: ED 04:50 → 3A 23:04
PROVIDERS: ADMIT Internal Medicine; ATTEND Internal Medicine
PROC: 0FT44ZZ Resection of Gallbladder, Percutaneous Endoscopic Approach (ICD-10-PCS; principal; 2021-09-22)
PROC: BF131ZZ Fluoroscopy of Gallbladder and Bile Ducts using Low Osmolar Contrast (ICD-10-PCS; 2021-09-22)
DX: K80.62 Calculus of gallbladder and bile duct with acute cholecystitis without obstruction (principal); N39.0 Urinary tract infection, site not specified; M19.90 Unspecified osteoarthritis, unspecified site; F17.200 Nicotine dependence, unspecified, uncomplicated; K21.9 Gastro-esophageal reflux disease without esophagitis; J45.909 Unspecified asthma, uncomplicated
CPT/HCPCS: 36415; 71045; 74018; 74177; 74300; 76705; 80053; 81001; 81025; 82140; 82150; 83690; 83735; 85025; 85027; 87086; 88304; G0378; J1815; J3490; J1100; J1170; J1644; J1885; J2270; J2405; J2543; J2704; J2710; J7030; J7042; J7120; Q9967